=== PATIENT | male | born 1955 | race Caucasian/White ===

== ENCOUNTER 2018-04-02 18:20 | Emergency (ER) | payer BC ==
[~2018-04-02] VITALS: Ht 177.8 cm; Wt 110.0 kg
--- NOTE | 2018-04-02 18:59 | NUR ---
SEEN IN ED TODAY FOR EPISTAXIS WHICH STARTED LAST NIGHT. BLEEDING STARTED AGAIN AT APPROX 1630. BLEEDING CONTROLLED IN TRIAGE WITH NOSECLAMP. per marcy note
[2018-04-02] MEDS ORDERED: LIDOCAINE 1%-EPI 1:100K, 20ML ONE (19:02)
[2018-04-02] MEDS ORDERED: OXYMETAZOLINE NASAL SPRAY 0.05%, 15ML ONE (19:02)
--- NOTE | 2018-04-02 19:08 | NUR ---
epistaxis dr heck at bed side for eval now
--- NOTE | 2018-04-02 19:18 | NUR ---
rhino was packed by dr heck pt will be monitored for a while d/t rechecking bleeding will give med
[2018-04-02] MEDS ORDERED: LIDOCAINE 1%-EPI 1:100K, 50ML INFIL ONE (19:30)
[2018-04-02] MEDS ORDERED: OXYMETAZOLINE NASAL SPRAY 0.05%, 15ML NAS ONE (19:30)
[2018-04-02] MEDS ORDERED: AMLODIPINE 5 MG TABLET PO ONE (19:30)
[2018-04-02] MEDS ORDERED: AMLODIPINE 5 MG TABLET ONE (19:30)
--- NOTE | 2018-04-02 19:36 | NUR ---
given amlodipine pt will be dc'd per dr heck d/t pt's bp was high at home before pt's rhino is intact no other back blood flow pt wants to go home too
--- NOTE | 2018-04-02 20:13 | NUR ---
given all dc instruction with prescription pt understood pt up ambulated to check out with family pt stated will check bp very well and will follow up with ent md and pcp for bp
[2018-04-02 20:15] VITALS: BP 198/106
== END 2018-04-02 20:17 | disposition home or self-care (01) ==
LOC: ED 19:21
DX: R04.0 Epistaxis (principal); I10 Essential (primary) hypertension
CPT/HCPCS: 30901; 99284

== ENCOUNTER 2018-04-03 14:29 | Emergency (ER) | payer BC ==
[~2018-04-03] VITALS: Ht 177.8 cm; Wt 108.6 kg
--- NOTE | 2018-04-03 15:00 | NUR ---
EPISTAXIS ON 04/02, CAUTERY AND NASAL PACKING IN ED. PT NOW PRESENTS WITH C/O BLOOD RUNNING DOWN BACK OF THROAT EARLIER TODAY. STATES HE PLACED AN ICE PACK ON THE BRIDGE OF NOSE WITH EFFECT.
[2018-04-03] MEDS ORDERED: OXYMETAZOLINE NASAL SPRAY 0.05%, 15ML ONE (15:08)
[2018-04-03] MEDS ORDERED: BACITRACIN ZINC OINT 500U/GM, 0.9 GM ONE (15:08)
[2018-04-03] MEDS ORDERED: LIDOCAINE 1%-EPI 1:100K, 20ML ONE (15:08)
[2018-04-03] MEDS ORDERED: SILVER NITRATE STICK TP ONE (15:08)
[2018-04-03 16:01] VITALS: BP 153/112
--- NOTE | 2018-04-03 16:25 | NUR ---
Patient/Caregiver given discharge instructions and they have confirmed that they understand the instructions. Patient ambulatory with steady gait.
== END 2018-04-03 16:26 | disposition home or self-care (01) ==
LOC: ED 16:05
DX: R04.0 Epistaxis (principal); I10 Essential (primary) hypertension
CPT/HCPCS: 30901; 99284

== ENCOUNTER 2018-04-05 07:44 | Emergency (ER) | payer BC ==
[~2018-04-05] VITALS: Ht 177.8 cm; Wt 108.0 kg
--- NOTE | 2018-04-05 07:52 | NUR ---
Pt ambulates with steady gait and balance to room from triage. is with pt. Pt changing into hospital gown.
--- NOTE | 2018-04-05 07:54 | NUR ---
Pt states, "I started having a nose bleed again when I was sleeping this morning. I have high blood pressure and I just started medication. I just took my meds this morning."
[2018-04-05] MEDS ORDERED: OXYMETAZOLINE NASAL SPRAY 0.05%, 15ML ONE (08:01)
[2018-04-05] MEDS ORDERED: AMLO2.5T5 PO (08:08)
--- NOTE | 2018-04-05 08:09 | NUR ---
Pt resting on gurney. Provided medication per EMAR Pt has nasal clamp on. Pt connected to NIBP and continous pulse ox. All safety measures in place. Call light within reach. No needs expressed at this time.
[2018-04-05 08:20] VITALS: BP 171/98
--- NOTE | 2018-04-05 08:26 | NUR ---
Provided second dose of medicaiton per EMAR. Pt connected to NIBP and continous pulse ox. All safety measures in place. NADN. No needs expressed at this time.
[2018-04-05] MEDS ORDERED: OXYMETAZOLINE NASAL SPRAY 0.05%, 15ML NAS ONE (08:30)
== END 2018-04-05 12:08 | disposition home or self-care (01) ==
LOC: ED 08:47
DX: R04.0 Epistaxis (principal); I10 Essential (primary) hypertension
CPT/HCPCS: 30901; 99284

== ENCOUNTER 2018-04-10 13:29 | Inpatient (IN) | payer BC ==
[~2018-04-10] VITALS: Ht 177.8 cm; Wt 70.0 kg
[~2018-04-10 13:29] MED LIST: AMLO2.5T5 PO
[2018-04-10] MEDS ORDERED: AMLO10TA8 PO (13:53)
[2018-04-10] MEDS ORDERED: CEPH-368 PO (13:53)
--- NOTE | 2018-04-10 13:54 | NUR ---
PT TO ED FOR ADMISSION FOR EPISTAXIS (LEFT SIDE) X11 DAYS. PA ASSESSMENT COMPLETE. AWAITING ORDERS.
[2018-04-10] MEDS ORDERED: SODIUM CHLORIDE FLUSH 10ML SYR IVF ONE (14:00)
--- NOTE | 2018-04-10 14:08 | NUR ---
iv established and labs drawn. pt to xray at this time.
[2018-04-10 14:13] LABS: MEAN CORPUSCULAR HEMOGLOBIN 32.5 pg (27.5-34.5); MEAN CORPUSCULAR HGB CONC 34.9 g/dL (33.2-36.2); MEAN CORPUSCULAR VOLUME 93.1 fL (81-97); MEAN PLATELET VOLUME 7.6 fL (7.4-10.4); PLATELET COUNT 372 x10^3/uL (130-400); RED BLOOD COUNT 3.79 x10^6/uL (4.38-5.82); RED CELL DISTRIBUTION WIDTH 14.9 % (9.4-14.8)
--- NOTE | 2018-04-10 14:15 | NUR ---
pt back from xray.
[2018-04-10 14:25] LABS: ALANINE AMINOTRANSFERASE 41 U/L (12-78); ALBUMIN 3.6 g/dL (3.4-5.0); ANION GAP 7 mmol/L (5-15); CALCIUM 9.1 mg/dL (8.5-10.1); CHLORIDE 106 mmol/L (98-107); CREATININE 1.12 mg/dL (0.7-1.3); INTERNATIONAL NORMALIZED RATIO 1.04 (0.93-1.1); PROTHROMBIN TIME 10.9 Seconds (9.6-11.5)
[2018-04-10 14:27] LABS: ALKALINE PHOSPHATASE 81 U/L (45-117); BILIRUBIN,TOTAL 1.2 mg/dL (0.2-1.0); TOTAL PROTEIN 7.7 g/dL (6.4-8.2)
[2018-04-10 14:57] LABS: BASOPHILS # (AUTO) 0.04 x10^3/uL (0-0.1); BASOPHILS % (AUTO) 0 % (0-1); EOSINOPHILS # (AUTO) 0.07 x10^3/uL (0-0.4); EOSINOPHILS % (AUTO) 0 % (1-7); LYMPHOCYTES # (AUTO) 2.25 x10^3/uL (1-3.4); LYMPHOCYTES % (AUTO) 12 % (22-44); MD SCAN; MONOCYTES # (AUTO) 1.48 x10^3/uL (0.2-0.8); MONOCYTES % (AUTO) 8 % (2-9); NEUTROPHILS % (AUTO) 80 % (42-75)
--- NOTE | 2018-04-10 15:06 | NUR ---
hospitalist assessment complete. awatiing bed assignment.
[2018-04-10] MEDS ORDERED: ACETAMINOPHEN 325 MG TABLET PO PRN (15:30)
[2018-04-10] MEDS ORDERED: ONDANSETRON 2MG/ML, 2ML IVPush PRN (15:30)
[2018-04-10] MEDS ORDERED: BISACODYL 10 MG SUPP PR PRN (15:30)
[2018-04-10] MEDS ORDERED: LABETALOL 5MG/ML, 20ML IVPush PRN (15:30)
[2018-04-10] MEDS ORDERED: DOCUSATE 100 MG CAPSULE PO PRN (15:30)
[2018-04-10] MEDS ORDERED: POLYETHYLENE GLYCOL 17 GM PACKET PO PRN (15:30)
[2018-04-10 16:11] VITALS: BP 162/74
[2018-04-10] MEDS: CEPHALEXIN 500 MG CAPSULE PO SCH ×2 (16:41→22:12)
[2018-04-10] MEDS ORDERED: LIDOCAINE 1%-EPI 1:100K, 30ML ONE (17:13)
[2018-04-10] MEDS ORDERED: OXYMETAZOLINE NASAL SPRAY 0.05%, 15ML ONE (17:13)
[2018-04-10] MEDS ORDERED: MIDAZOLAM 1 MG/ML, 2ML ONE (17:30)
[2018-04-10] MEDS ORDERED: FENTANYL PF 250 MCG/5ML ONE (17:30)
[2018-04-10] MEDS ORDERED: THROMBIN 5,000 UNIT VIAL TP ONE (17:41)
[2018-04-10] MEDS ORDERED: OXYcodone 5 MG/5 ML ORAL.SOL UDC PO PRN (18:00)
[2018-04-10] MEDS ORDERED: hydrALAzine 20 MG/ML, 1ML IV PRN (18:00)
[2018-04-10] MEDS ORDERED: LORazepam 2 MG/ML, 1ML IVPush PRN (18:00)
[2018-04-10] MEDS ORDERED: HYDROmorphone 2 MG/ML, 1ML IVPush PRN (18:00)
[2018-04-10] MEDS ORDERED: LABETALOL 5 MG/ML SYRINGE IV PRN (18:00)
[2018-04-10] MEDS ORDERED: FENTANYL PF 100 MCG/2ML IV PRN (18:00)
[2018-04-10] MEDS ORDERED: METOCLOPRAMIDE 5 MG/ML, 2ML IV PRN (18:00)
[2018-04-10] MEDS ORDERED: SUGAMMADEX 200 MG/2 ML IVPush ONE (18:02)
[2018-04-10] MEDS ORDERED: LABETALOL 5 MG/ML SYRINGE ONE (18:04)
[2018-04-10] MEDS ORDERED: ONDANSETRON 2MG/ML, 2ML ONE (18:04)
[2018-04-10] MEDS ORDERED: PHENYLEPHRINE 10 MG/ML ONE (18:04)
[2018-04-10] MEDS ORDERED: PROPOFOL 10 MG/ML, 20ML ONE (18:04)
[2018-04-10 20:17] VITALS: BP 145/72
[2018-04-10] MEDS: NS + 20MEQ KCL 1,000 ML IV SCH (22:13)
[2018-04-11 00:34] VITALS: BP 138/82
[2018-04-11 04:20] VITALS: BP 125/69
[2018-04-11 05:40] LABS: BASOPHILS # (AUTO) 0.04 x10^3/uL (0-0.1); BASOPHILS % (AUTO) 0 % (0-1); EOSINOPHILS % (AUTO) 0 % (1-7); LYMPHOCYTES # (AUTO) 0.84 x10^3/uL (1-3.4); LYMPHOCYTES % (AUTO) 7 % (22-44); MD NO; MEAN CORPUSCULAR HEMOGLOBIN 32.3 pg (27.5-34.5); MEAN CORPUSCULAR HGB CONC 34.3 g/dL (33.2-36.2); MEAN CORPUSCULAR VOLUME 94.2 fL (81-97); MEAN PLATELET VOLUME 8.3 fL (7.4-10.4); MONOCYTES # (AUTO) 0.53 x10^3/uL (0.2-0.8); MONOCYTES % (AUTO) 4 % (2-9); NEUTROPHILS # (AUTO) 10.66 x10^3/uL (1.8-6.8); NEUTROPHILS % (AUTO) 88 % (42-75); PLATELET COUNT 294 x10^3/uL (130-400); RED BLOOD COUNT 3.36 x10^6/uL (4.38-5.82); RED CELL DISTRIBUTION WIDTH 14.6 % (9.4-14.8)
[2018-04-11 05:43] LABS: ANION GAP 7 mmol/L (5-15); CALCIUM 8.6 mg/dL (8.5-10.1); CHLORIDE 110 mmol/L (98-107)
[2018-04-11 05:44] LABS: CREATININE 0.97 mg/dL (0.7-1.3)
[2018-04-11 07:41] VITALS: BP 122/68
[2018-04-11] MEDS: NS + 20MEQ KCL 1,000 ML IV SCH (07:59)
[2018-04-11] MEDS: CEPHALEXIN 500 MG CAPSULE PO SCH (08:44)
[2018-04-11] MEDS ORDERED: AMLODIPINE 10 MG TAB PO SCH (09:00)
[2018-04-11 13:15] VITALS: BP 131/74
[2018-04-11] MEDS ORDERED: CEPH-368 PO (13:32)
== END 2018-04-11 14:10 | disposition home or self-care (01) | DRG 151 ==
LOC: OR 14:23 → EDIP 15:02 → 4NOR 16:07 → DCLOUNGE 04-11 14:04
PROVIDERS: ADMIT Internal Medicine; ATTEND Emergency Medicine
PROC: 093K8ZZ Control Bleeding in Nasal Mucosa and Soft Tissue, Via Natural or Artificial Opening Endoscopic (ICD-10-PCS; 2018-04-10)
PROC: 2Y41X5Z Packing of Nasal Region using Packing Material (ICD-10-PCS; principal; 2018-04-10 18:00)
DX: R04.0 Epistaxis (principal); T17.1XXA Foreign body in nostril, initial encounter; D64.9 Anemia, unspecified; D72.829 Elevated white blood cell count, unspecified; I11.9 Hypertensive heart disease without heart failure; F10.20 Alcohol dependence, uncomplicated; R73.9 Hyperglycemia, unspecified; Z91.14 Patient's other noncompliance with medication regimen; X58.XXXA Exposure to other specified factors, initial encounter; Y93.89 Activity, other specified; Y92.89 Other specified places as the place of occurrence of the external cause; Y99.8 Other external cause status
CPT/HCPCS: 36415; 71046; 80048; 80053; 84443; 85025; 85610; 85730; 99285; G0378; J2250; J2405; J2704; J3010; J3480; J3490; J2370